=== PATIENT | female | born 1975 | race Caucasian/White ===

== ENCOUNTER 2021-01-26 16:50 | Inpatient (IN) ==
[2021-01-26] MEDS ORDERED: levoFLOXacin 750 MG/150 ML 750 MG/150 ML BAG IVPB ONE ×2 (17:54→23:55)
[2021-01-26] MEDS ORDERED: *HR* HYDROmorphone (PF) 1 MG/ML SYRINGE IVP ONE ×2 (17:55→23:55)
[2021-01-26 18:18] LABS: Basophils % 0.1 %; Hematocrit 20.4 % (35.3-44.9); Hemoglobin 6.1 g/dL (11.5-15.4); Immature Granulocytes % 0.3 % (0-4); Lymphocytes # 1.1 K/mcL (0.6-4.6); Lymphocytes % 15.4 %; Mean Corpuscular HGB Conc 29.9 g/dL (31.6-35.5); Mean Corpuscular Hemoglobin 26.9 pg (28.0-33.3); Mean Corpuscular Volume 89.9 fL (83.0-100.0); Mean Platelet Volume 10.7 fL (9.4-12.4); Monocytes # 0.3 K/mcL (0.0-1.3); Monocytes % 4.3 %; Neutrophils # 5.5 K/mcL (1.6-8.9); Platelet Count 145 K/mcL (140-400); Red Blood Count 2.27 M/mcL (3.82-4.97); Red Cell Distribution Width 14.4 % (11.5-14.5); Segmented Neutrophils % 79.9 %; White Blood Count 6.9 K/mcL (4.3-11.1)
[2021-01-26 18:33] LABS: Calcium 7.5 mg/dL (8.6-10.3)
[2021-01-26] MEDS ORDERED: Vancomycin 500 MG in 0.9 % Sodium Chloride Mini Bag 100 ML IVPB ONE (20:00)
[2021-01-26] MEDS ORDERED: 0.9 % Sodium Chloride 1,000 ML IVC ONE (21:05)
[2021-01-26] MEDS ORDERED: *HR* Heparin 5,000 UNIT/ML VIAL IVP ONE (21:32)
[2021-01-26] MEDS ORDERED: *HR* Heparin 5,000 UNIT/ML VIAL IVP PRN ×4 (21:32→23:55)
[2021-01-26] MEDS ORDERED: Heparin 25,000UNIT/250ML 1/2NS 25,000 UNIT/250 ML IV.SOLN IVC SCH ×2 (21:45→23:55)
[2021-01-26 21:47] LABS: Heparin anti-factor XA UFH < 0.04 IU/mL (0.30-0.70)
[2021-01-26 21:48] LABS: INR 1.1; Prothrombin Time 12.4 Seconds (9.4-12.1)
[2021-01-26] MEDS ORDERED: 0.9 % Sodium Chloride 1,000 ML IVC SCH (23:55)
[2021-01-26] MEDS ORDERED: Naloxone 0.4 MG/ML INJ IVP PRN (23:55)
[2021-01-27] MEDS ORDERED: Acetaminophen 650 MG RECTAL SUPP RC PRN (00:14)
[2021-01-27] MEDS ORDERED: Vancomycin 500 MG in 0.9 % Sodium Chloride 250 ML IVPB ONE (01:00)
[2021-01-27] MEDS ORDERED: 0.9 % Sodium Chloride 250 ML ONE ×2 (01:02→20:57)
[2021-01-27] MEDS ORDERED: Cefepime HCl 2,000 MG in 0.9 % Sodium Chloride Mini Bag 100 ML IVPB SCH (02:00)
[2021-01-27] MEDS: Cefepime HCl 2,000 MG in 0.9 % Sodium Chloride Mini Bag 100 ML IVPB SCH (06:57)
[2021-01-27 08:57] LABS: Basophils % 0.2 %; Hematocrit 23.8 % (35.3-44.9); Hemoglobin 7.2 g/dL (11.5-15.4); Immature Granulocytes % 0.5 % (0-4); Lymphocytes # 1.2 K/mcL (0.6-4.6); Mean Corpuscular HGB Conc 30.3 g/dL (31.6-35.5); Mean Corpuscular Hemoglobin 27.1 pg (28.0-33.3); Mean Corpuscular Volume 89.5 fL (83.0-100.0); Mean Platelet Volume 11.6 fL (9.4-12.4); Monocytes # 0.3 K/mcL (0.0-1.3); Monocytes % 4.8 %; Neutrophils # 5.1 K/mcL (1.6-8.9); Platelet Count 151 K/mcL (140-400); Red Blood Count 2.66 M/mcL (3.82-4.97); Red Cell Distribution Width 14.1 % (11.5-14.5); Segmented Neutrophils % 76.5 %; White Blood Count 6.7 K/mcL (4.3-11.1)
[2021-01-27 08:59] LABS: Bilirubin,Urine Negative (Negative); Blood,Urine Moderate (Negative); Clarity,Urine Slightly Cloudy (Clear); Color,Urine Yellow (Yellow); Glucose,Urine (UA) Normal (Normal); Ketones,Urine Negative (Negative); Leukocyte Esterase,Urine Trace (Negative); Nitrite,Urine Negative (Negative); Protein,Urine >=300 mg/dL (Neg-Trace); Urobilinogen,Urine Normal (Normal)
[2021-01-27] MEDS ORDERED: Dextrose Gel 15 GM/37.5 ML TUBE PO PRN ×2 (09:03)
[2021-01-27] MEDS ORDERED: *HR* Dextrose 50 % in Water (Syg) 50 ML SYRINGE IVP PRN (09:03)
[2021-01-27] MEDS ORDERED: D5% in Water 1,000 ML IVC PRN (09:03)
[2021-01-27 09:08] LABS: Bacteria,Urine Many per hpf (None-Few); Hyaline Casts,Urine Few per lpf (None Seen); Squamous Epithelial Cell,Urine Few per hpf (None-Few); WBC,Urine 15-30 per hpf (0-3)
[2021-01-27 09:16] LABS: Calcium 6.8 mg/dL (8.6-10.3); Potassium 4.9 mEq/L (3.5-5.1)
[2021-01-27] MEDS ORDERED: Benzonatate 100 MG CAPSULE PO PRN (09:23)
[2021-01-27] MEDS: *HR* OxyCODONE/APAP 10/325 TABLET PO PRN ×2 (10:36→21:29)
[2021-01-27] MEDS: Ringers Solution, Lactated 1,000 ML IVC SCH ×2 (10:37→21:31)
[2021-01-27] MEDS ORDERED: SUMAtriptan succinate 25 MG TABLET PO PRN (12:10)
[2021-01-27] MEDS ORDERED: Acetaminophen 325 MG TABLET PO PRN (12:13)
[2021-01-27 13:40] LABS: % Iron Saturation 14 % (15-50); Iron 17 mcg/dL (50-170); Transferrin 84 mg/dL (203-362)
[2021-01-27 13:51] LABS: Estimated Average Glucose 105 mg/dl; Hemoglobin A1C 5.3 %
[2021-01-27 14:11] LABS: Folate 22.2 ng/mL (3.0-16.0)
[2021-01-27 14:13] LABS: Vitamin B12 > 1500 pg/mL (250-1100)
[2021-01-27] MEDS: Insulin LISPRO 300 UNITS/3 ML VIAL SUBQ SCH ×3 (14:28→21:39)
[2021-01-27] MEDS: Gabapentin 400 MG CAPSULE PO SCH ×2 (16:03→21:30)
[2021-01-27] MEDS: Ondansetron 4 MG/2 ML VIAL IVP PRN (17:54)
[2021-01-27 18:10] LABS: Hematocrit 21.9 % (35.3-44.9); Hemoglobin 6.7 g/dL (11.5-15.4)
[2021-01-27] MEDS: hydrALAZINE 25 MG TABLET PO SCH (21:30)
[2021-01-28 02:16] LABS: Basophils % 0.2 %; Hematocrit 24.6 % (35.3-44.9); Hemoglobin 7.6 g/dL (11.5-15.4); Immature Granulocytes % 1.3 % (0-4); Lymphocytes # 0.9 K/mcL (0.6-4.6); Lymphocytes % 15.5 %; Mean Corpuscular HGB Conc 30.9 g/dL (31.6-35.5); Mean Corpuscular Hemoglobin 27.5 pg (28.0-33.3); Mean Corpuscular Volume 89.1 fL (83.0-100.0); Mean Platelet Volume 11.9 fL (9.4-12.4); Monocytes # 0.2 K/mcL (0.0-1.3); Monocytes % 3.6 %; Neutrophils # 4.4 K/mcL (1.6-8.9); Platelet Count 123 K/mcL (140-400); Red Blood Count 2.76 M/mcL (3.82-4.97); Red Cell Distribution Width 14.5 % (11.5-14.5); Segmented Neutrophils % 79.4 %; White Blood Count 5.5 K/mcL (4.3-11.1)
[2021-01-28 02:28] LABS: Calcium 6.9 mg/dL (8.6-10.3); Potassium 4.5 mEq/L (3.5-5.1)
[2021-01-28] MEDS: Cefepime HCl 2,000 MG in 0.9 % Sodium Chloride Mini Bag 100 ML IVPB SCH (05:30)
[2021-01-28] MEDS ORDERED: *HR* Enoxaparin 40 MG/0.4 ML SYRINGE SQ SCH (06:00)
[2021-01-28] MEDS: Gabapentin 400 MG CAPSULE PO SCH ×3 (08:02→21:42)
[2021-01-28] MEDS: Ascorbic Acid 500 MG TABLET PO SCH (08:15)
[2021-01-28] MEDS: FLUoxetine 20 MG CAPSULE PO SCH (08:15)
[2021-01-28] MEDS: Ringers Solution, Lactated 1,000 ML IVC SCH ×3 (08:16→21:52)
[2021-01-28] MEDS: Insulin LISPRO 300 UNITS/3 ML VIAL SUBQ SCH ×4 (08:17→21:44)
[2021-01-28] MEDS: clonazePAM 0.5 MG TABLET PO SCH (08:17)
[2021-01-28 09:14] LABS: Hematocrit 24.6 % (35.3-44.9); Hemoglobin 7.5 g/dL (11.5-15.4)
[2021-01-28 12:46] LABS: Hematocrit 24.2 % (35.3-44.9); Hemoglobin 7.4 g/dL (11.5-15.4)
[2021-01-28 12:54] LABS: VBG Ionized Calcium 1.15 mmol/L (1.15-1.35)
[2021-01-28] MEDS: Ondansetron 4 MG/2 ML VIAL IVP PRN ×2 (14:39→22:06)
[2021-01-28] MEDS ORDERED: Doxycycline 100 MG in 0.9 % Sodium Chloride Mini Bag 100 ML IVPB SCH (18:00)
[2021-01-28] MEDS: *HR* Heparin 5,000 UNIT/ML VIAL SQ SCH (18:25)
[2021-01-28] MEDS: *HR* OxyCODONE/APAP 10/325 TABLET PO PRN (21:43)
[2021-01-28] MEDS: hydrALAZINE 25 MG TABLET PO SCH (21:44)
[2021-01-29] MEDS: Cefepime HCl 2,000 MG in 0.9 % Sodium Chloride Mini Bag 100 ML IVPB SCH (05:29)
[2021-01-29] MEDS: *HR* Heparin 5,000 UNIT/ML VIAL SQ SCH ×2 (05:30→17:59)
[2021-01-29 06:47] LABS: Hematocrit 25.8 % (35.3-44.9); Hemoglobin 7.8 g/dL (11.5-15.4); Immature Granulocytes % 0.5 % (0-4); Lymphocytes # 0.5 K/mcL (0.6-4.6); Lymphocytes % 11.3 %; Mean Corpuscular HGB Conc 30.2 g/dL (31.6-35.5); Mean Corpuscular Hemoglobin 27.3 pg (28.0-33.3); Mean Corpuscular Volume 90.2 fL (83.0-100.0); Mean Platelet Volume 12.2 fL (9.4-12.4); Monocytes # 0.1 K/mcL (0.0-1.3); Monocytes % 3.2 %; Neutrophils # 3.5 K/mcL (1.6-8.9); Platelet Count 134 K/mcL (140-400); Red Blood Count 2.86 M/mcL (3.82-4.97); Red Cell Distribution Width 15.1 % (11.5-14.5); White Blood Count 4.1 K/mcL (4.3-11.1)
[2021-01-29 07:32] LABS: Calcium 7.1 mg/dL (8.6-10.3); Potassium 4.4 mEq/L (3.5-5.1)
[2021-01-29] MEDS: Insulin LISPRO 300 UNITS/3 ML VIAL SUBQ SCH ×3 (09:16→17:19)
[2021-01-29] MEDS: Gabapentin 400 MG CAPSULE PO SCH ×3 (10:41→17:47)
[2021-01-29] MEDS: Ascorbic Acid 500 MG TABLET PO SCH ×2 (10:42→17:49)
[2021-01-29] MEDS: FLUoxetine 20 MG CAPSULE PO SCH ×2 (10:42→17:49)
[2021-01-29] MEDS: Cholecalciferol (D-3) 1,000 UNIT (25MCG) TABLET PO SCH ×2 (10:42→17:49)
[2021-01-29] MEDS: clonazePAM 0.5 MG TABLET PO SCH ×2 (10:42→17:47)
[2021-01-29] MEDS: Lactobacillus 1 EACH CAP.SPRINK PO SCH ×2 (10:42→17:47)
[2021-01-29] MEDS: Ringers Solution, Lactated 1,000 ML IVC SCH ×2 (10:44→19:39)
[2021-01-29] MEDS ORDERED: *HR* OxyCODONE/APAP 5/325 TABLET PO PRN (10:47)
[2021-01-29] MEDS ORDERED: Levalbuterol Neb 1.25 MG/3 ML IH SCH (12:25)
[2021-01-29 18:54] VITALS: BP 140/72; PULSE 82; RESP 17; TEMP 97.5; O2SAT 97
[2021-01-29 20:06] LABS: ABG Base Excess -13 mEq/L (-2 to 3); ABG HCO3 13 mEq/L (21-27); ABG Oxygen Saturation 90 % (95-98); ABG PCO2 31 mmHg (35-45); ABG PH 7.24 pH Units (7.32-7.45); ABG PO2 67 mmHg (85-104); ABG TCO2 14 mEq/L (20-26)
[2021-01-29 20:15] LABS: Hemoglobin 7.9 g/dL (11.5-15.4); Immature Granulocytes % 0.8 % (0-4); Lymphocytes # 0.5 K/mcL (0.6-4.6); Lymphocytes % 11.9 %; Mean Corpuscular HGB Conc 30.4 g/dL (31.6-35.5); Mean Corpuscular Hemoglobin 27.1 pg (28.0-33.3); Mean Platelet Volume 11.2 fL (9.4-12.4); Monocytes # 0.1 K/mcL (0.0-1.3); Monocytes % 3.5 %; Platelet Count 156 K/mcL (140-400); Red Blood Count 2.92 M/mcL (3.82-4.97); Red Cell Distribution Width 15.2 % (11.5-14.5); Segmented Neutrophils % 83.8 %
[2021-01-29 20:31] LABS: Albumin 2.1 g/dL (3.5-5.7); Albumin/Globulin Ratio 0.9 (1.1-2.2); Bilirubin,Total 0.2 mg/dL (0.3-1.0); Globulin 2.3 g/dL (2.4-3.5); Potassium 4.2 mEq/L (3.5-5.1); Total Protein 4.4 g/dL (6.4-8.9)
[2021-01-29 20:35] LABS: Neutrophils # 3.4 K/mcL (1.6-8.9)
[2021-01-30] MEDS ORDERED: Cefepime HCl 2,000 MG in 0.9 % Sodium Chloride Mini Bag 100 ML IVPB SCH (06:00)
[2021-01-30] MEDS ORDERED: Cefdinir 300 MG CAPSULE PO SCH (09:00)
== END 2021-01-29 21:21 | disposition short-term general hospital (02) | DRG 720 ==
LOC: INPPIK 16:50 → EMEROOPIK 16:50 → INPPIK 23:30
PROVIDERS: ADMIT Internal Medicine; ATTEND Internal Medicine